=== PATIENT | male | born 1955 | race Caucasian/White ===

== ENCOUNTER 2016-08-26 07:49 | Day surgery (SDC) | payer MEDICARE, OTHER ==
[2016-08-26] MEDS ORDERED: LIDOCAINE 2% MDV (20MG/ML) 20ML VIAL IV ONE (14:00)
[2016-08-26] MEDS ORDERED: MIDAZOLAM HCL 2MG/2ML VIAL IV ONE (14:00)
[2016-08-26] MEDS ORDERED: PROPOFOL 10 MG/ML VIAL IV ONE (14:00)
--- NOTE | 2016-08-31 10:00 | Operative Note ---
DATE OF SURGERY: REQUESTING PROVIDER: Christophe Cisneros D.O. POSTOPERATIVE DIAGNOSES: 1. Poor bowel preparation. 2. A 6 mm size sigmoid colon polyp that was removed by cold snare. OPERATION: COLONOSCOPY. Surgeon: Silvia Chávez M.D. Indication for Procedure: This is a 61-year-old male with history of average risk for colorectal cancer who presented for screening colonoscopy. Sedation: Sedation was per Anesthesia. Pulse oximetry was monitored throughout the duration of the procedure to maintain O2 saturation of 90% or greater. Supplemental oxygen was administered via nasal cannula. Cardiac and vital signs were monitored throughout the duration of the procedure, and they were stable. Description of the procedure of colonoscopy and risks and benefits of the procedure including the risk of bleeding and perforation, among others, were explained to the patient who voiced understanding and agreed to have the procedure done. Physical exam was performed, and the patient was found stable for sedation. PROCEDURE: The patient was placed in the left lateral position and sedation was initiated. Digital rectal exam was performed and showed small external hemorrhoids with no palpable rectal masses. The Olympus PCF-180AL colonoscope was then inserted into the rectum under direct visualization and advanced to the cecum without difficulty. The ileocecal valve and appendiceal orifice were identified and photographed. The colonic mucosa was carefully examined upon insertion of the colonoscope. There were multiple areas of the colon with poor bowel preparation including solid stool material that was difficult to irrigate. The colonoscope was then withdrawal while carefully examining the colonic mucosal surfaces. The cecum, the rest of the ascending colon, transverse colon, descending colon showed no other significant abnormality. In the sigmoid however was a 6 mm sessile polyp that was noted and was removed by cold snare. The colonoscope was then withdrawn into the rectum. There were no other lesions. Retroflexion was performed and grade 1 internal hemorrhoids were noted. The colonoscope was then withdrawn and the procedures were terminated. The patient tolerated the procedures well without immediate complications. He remained with stable vital signs and was transferred to the Recovery Room. PLAN AND RECOMMENDATIONS: 1. He should be on a high-fiber diet. 2. He is to have a repeat colonoscopy for surveillance in 1 year because of the poor bowel preparation. As always, thank you for allowing me to participate in the care of your patient. Silvia Chávez MD CC: Bari Ozuna
== END 2016-08-26 10:10 | disposition home or self-care (01) ==
LOC: HOP 07:49
PROVIDERS: ATTEND Internal Medicine Gastroenterology
DX: Z12.11 Encounter for screening for malignant neoplasm of colon (principal); D12.5 Benign neoplasm of sigmoid colon; I10 Essential (primary) hypertension; E78.00 Pure hypercholesterolemia, unspecified

== ENCOUNTER → 2018-07-13 | Day surgery (SDC) | payer MEDICARE, OTHER ==
[~2018-07-13] MED LIST: LIDOCAINE 2% MDV (20MG/ML) 20ML VIAL IV ONE; PROPOFOL 10 MG/ML VIAL IV ONE
--- NOTE | 2018-07-18 09:30 | Operative Note ---
DATE OF SURGERY: 07/13/2018 SURGEON: Silvia Chávez MD OPERATION: COLONOSCOPY. INDICATIONS: This is a 62-year-old male whose last colonoscopy was over 10 years ago. He presented for screening colonoscopy. POSTOPERATIVE DIAGNOSES: 1. A 5 mm sessile polyp in the rectum that was removed by cold snare. 2. Otherwise normal colon and terminal ileum. ANESTHESIA: Sedation is per Anesthesia. Pulse oximetry was monitored throughout the procedure to maintain O2 saturation of 90% or greater. Supplemental oxygen was administered via nasal cannula. Cardiac and vital signs were monitored throughout the duration of the procedure, and they were stable. The procedure of colonoscopy and risks and alternatives of the procedure, including the risk of bleeding and perforation, among others, were explained to the patient who voiced understanding and agreed to have the procedure done. Physical examination was performed, and the patient was found stable for sedation. PROCEDURE: The patient was placed in the left lateral position. Sedation was initiated. A digital rectal exam was performed and showed some mild external hemorrhoids with no palpable rectal masses. An Olympus PCF-180AL colonoscope was then inserted into the rectum under direct visualization. It was advanced to the cecum without difficulty. The ileocecal valve and appendiceal orifice were identified and photographed. The colonic mucosa was carefully examined upon introduction of the colonoscope. There were no lesions noted. The ileocecal valve was intubated and terminal ileal mucosa was inspected for about 10 cm and it appeared normal. The colonoscope was then withdrawn while carefully examining the colonic mucosal surfaces. The cecum, ascending colon, transverse colon, descending colon, and sigmoid colon mucosa appeared normal. In the rectum, a 5 mm sessile polyp was noted and was removed by cold snare. There were no other lesions noted. Retroflexion revealed no other lesions. The colonoscope was then withdrawn and the procedure was terminated. The patient tolerated the procedure well without any immediate complications. The patient remained with stable vital signs and was transferred to the recovery room. RECOMMENDATIONS: 1. The patient should be on a high-fiber diet. 2. The patient is to have a repeat colonoscopy for 5 or 10 years depending on the histology of the polyp. Thank you for allowing me to participate in the care of your patient. CC: DO ALFREDO Ozuna
== END | disposition home or self-care (01) ==
LOC: HOP 11:37
PROVIDERS: ATTEND Internal Medicine Gastroenterology
DX: Z12.11 Encounter for screening for malignant neoplasm of colon (principal); D12.8 Benign neoplasm of rectum; I10 Essential (primary) hypertension; E78.00 Pure hypercholesterolemia, unspecified; M19.90 Unspecified osteoarthritis, unspecified site